=== PATIENT | male | born 1955 | race Caucasian/White ===

== ENCOUNTER 2022-03-02 14:35 | Emergency (ER) | payer MEDICARE, SELFPAY ==
[2022-03-02 14:50] VITALS: RESP 22; O2SAT 99; BMI 22.9
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
[2022-03-02] MEDS: tetanus-diphtheria tox (adult) 0.5 mL SDV IM (14:58)
[2022-03-02 15:06] VITALS: BP 134/61; PULSE 88; RESP 22; TEMP 36.6; O2SAT 96
--- NOTE | 2022-03-09 12:05 | PC.NURSE ---
Pt arrives via POV to have haylee removed from top of head. 13 haylee removed at this time. Pt handled well. Wound is healed. Pt stable and ambulatory from ED.
== END 2022-03-02 15:00 | disposition home or self-care (01) ==
PROVIDERS: Emergency Provider Emergency Medicine
DX: S01.01XA Laceration without foreign body of scalp, initial encounter (principal); V91.8 Other injury due to other accident to watercraft; Y93.16 Activity, rowing, canoeing, kayaking, rafting and tubing; Z23 Encounter for immunization
CPT/HCPCS: 12004; 90471; 90714; 99282

== ENCOUNTER 2022-06-19 05:00 | Emergency (ER) | payer MEDICARE, SELFPAY ==
[2022-06-19 05:13] VITALS: BP 179/84; PULSE 52; RESP 20; TEMP 36.7; O2SAT 100; BMI 24.3
--- NOTE | 2022-06-19 05:14 | ED_ITS ---
Documented by User: George Olsen MD 06/19/22 06:27 HPI - Chest Pain General: Chief Complaint: Chest Pain Stated Complaint: CP, Abd pain, back pain Time Seen by Provider: 06/19/22 05:13 History of Present Illness: Mr. Kendall is a 66-year-old gentleman without significant past medical history presents to the emergency department due to epigastric and chest pain. He reports being in his baseline health the past few days and overnight ate some food around midnight which went fine. He had some high at about 1 AM and shortly thereafter developed severe epigastric pain with radiation through to the back. Additionally he has some shortness of breath and radiation of the chest. Intensity symptoms is moderate to severe. Denies other typical cardiac features. No history of frequent similar episodes in the past. He tried home treatment without significant relief. No other specific changes in health, exacerbating, or alleviating factors identified. Onset (ago): hour(s) Timing of current episode: constant Prior episodes: No Onset: during rest Pain location: substernal and epigastric Pain radiation: back Quality: tightness, aching and sharp Relieving factors: nothing Exacerbating factors: nothing Associated symptoms: Reports no associated symptoms Review of Systems General: Reports: 10 or more systems reviewed and unremarkable except in HPI and below PFSH ED PFSH: Medical History (Updated 06/19/22 @ 08:09 by Rigoberto Pack MD) No significant past medical history Surgical History (Updated 06/19/22 @ 05:29 by George Olsen MD) No significant past surgical history Physical Exam Const: COMMON NORMALS: alert GENERAL APPEARANCE: cooperative and well developed HENMT: COMMON NORMALS: normocephalic and atraumatic HEAD & SCALP: normo cephalic and atraumatic Eye: COMMON NORMALS: conjunctivae normal CONJUNCTIVA: Yes conjunctivae normal SCLERA: sclerae normal Neck/C-Spine: COMMON NORMALS: supple GENERAL: Yes trachea midline Resp: COMMON NORMALS: normal respiratory effort EFFORT & INSPECTION: Yes able to speak in complete sentences Cardio: COMMON NORMALS: regular rate and regular rhythm RATE: regular rate RHYTHM: regular rhythm GI: COMMON NORMALS: Soft to palpation PALPATION: Yes Soft to palpation and No Tenderness to palpation present (GI) Extremity: GENERAL: Yes normal exam except as noted and No edema Neuro: COMMON NORMALS: moves all extremities SENSORIUM/ORIENTATION: Yes alert and No Orientation impaired Psych: COMMON NORMALS: mental status grossly normal and Normal thought process present THOUGHT PROCESS: Normal thought process present Course Vital Signs: Vital signs: Vital Signs Temperature 98.1 F 06/19/22 05:13 Pulse Rate 44 L 06/19/22 07:42 Respiratory Rate 20 H 06/19/22 05:35 Blood Pressure 184/78 06/19/22 07:42 Pulse Oximetry 100 06/19/22 07:42 Oxygen Delivery Me thod 06/19/22 07:42 MDM - Chest Pain Medical Decision Making 66-year-old gentleman presenting with epigastric/chest pain that radiates through the back associated with shortness of breath. Patient is nontoxic in appearance though does appear somewhat uncomfortable. Pain is not reproducible with palpation on exam. Handed off to morning ED physician Dr. Pack pending completion of ED evaluation and disposition. Medical Records I reviewed the patient's medical records. Lab Data I reviewed the patient's lab results. : 06/19/22 05:14 06/19/22 05:14 Radiology Impressions Chest X-Ray 06/19/22 05:24 IMPRESSION: 1. Emphysematous change and interstitial prominence. 2. Enlargement and tortuosity of the thoracic aorta. Chest/Abdomen/Pelvis CTA 06/19/22 08:17 IMPRESSION: Moderate tortuosity and ectasia of the thoracic aorta without aneurysm or dissection. Relatively normal abdominal aorta. Fusiform aneurysmal dilatation of the iliac arteries as above. Mild dilatation of the external and internal iliac arteries. No acute vascular abnormality identified. Chronic cholecystitis. No acute abdominal or pelvic abnormality. Severe degenerative disc disease in the thoracic and lumbar spine with no acute spine abnormality. Laboratory Results WBC 13.1 10^3/uL (4.0-10.0) H 06/19/22 05:14 RBC 4.81 10^6/uL (4.1-5.3) 06/19/22 05:14 Hgb 15.7 g/dL (11.7-16.6) 06/19/22 05:14 Hct 46.0 % (42.0-52.0) 06/19/22 05:14 MCV 95.6 fl (80-94) H 06/19/22 05:14 MCH 32.6 pg (28.0-34.0) 06/19/22 05:14 MCHC 34.1 g/dL (30.0-36.0) 06/19/22 05:14 RDW 11.9 % (12.1-15.1) L 06/19/22 05:14 Plt Count 363 10^3/cmm (130-400) 06/19/22 05:14 MPV 9.0 fL (7.4-10.4) 06/19/22 05:14 Neut % (Auto) 71.4 % 06/19/22 05:14 Lymph % (Auto) 18.9 % 06/19/22 05:14 Kimball % (Auto) 7.2 % 06/19/22 05:14 Eos % (Auto) 1.6 % 06/19/22 05:14 Baso % (Auto) 0.4 % 06/19/22 05:14 Neut # (Auto) 9.33 10^3/uL (1.8-7.7) H 06/19/22 05:14 Lymph # (Auto) 2.5 10^3/uL (0.8-4.8) 06/19/22 05:14 Kimball # (Auto) 0.9 10^3/uL (0.2-0.9) 06/19/22 05:14 Eos # (Auto) 0.2 10^3/uL (0.0-0.8) 06/19/22 05:14 Baso # (Auto) 0.1 10^3/uL (0.0-0.1) 06/19/22 05:14 Nucleated RBC % (auto) 0 % 06/19/22 05:14 Nucleated RBCs # 0.0 /100WBC 06/19/22 05:14 Sodium 139 mmol/L (136-145) 06/19/22 05:14 Potassium 3.8 mmol/L (3.5-5.1) 06/19/22 05:14 Chloride 100 mmol/L (98-107) 06/19/22 05:14 Carbon Dioxide 23 mmol/L (22-29) 06/19/22 05:14 Anion Gap 19.8 (5-19) H 06/19/22 05:14 BUN 17 mg/dL (8-23) 06/19/22 05:14 Creatinine 0.9 mg/dL (0.7-1.2) 06/19/22 05:14 GFR Calculation 83.9 mL/min (90-130) L 06/19/22 05:14 Glucose 106 mg/dL (65-115) 06/19/22 05:14 Calculated Osmolality 290 mOsm/kg (285-295) 06/19/22 05:14 Calcium 10.3 mg/dL (8.5-10.5) 06/19/22 05:14 Total Bilirubin 1.0 mg/dL (0.15-1.2) 06/19/22 05:14 AST 17 U/L (0-40) 06/19/22 05:14 ALT 13 U/L (0-41) 06/19/22 05:14 Alkaline Phosphatase 78 U/L (40-130) 06/19/22 05:14 Troponin T Baseline 6 ng/L (0-15) 06/19/22 05:14 Troponin T 120 Minute 8.21 ng/L (0-15) 06/19/22 07:33 Delta Troponin T 2.21 ABS# (0-10) 06/19/22 07:33 NT-Pro-B Natriuret Pep 355 pg/mL (0-125) H 06/19/22 05:14 Total Protein 7.7 g/dL (6.6-8.7) 06/19/22 05:14 Albumin 4.4 g/dL (3.5-5.2) 06/19/22 05:14 Globulin 3.3 g/dL (1.3-4.6) 06/19/22 05:14 Lipase 29 U/L (13-60) 06/19/22 05:14 Discharge Plan Discharge Patient Disposition: Home Clinical Impression: Chest pain Qualifiers: Chest pain type: unspecified Qualified Code(s): R07.9 - Chest pain, unspecified Condition: Stable Prescriptions: New Protonix 40 mg tablet,delayed release (DR/EC) 40 mg PO DAILY Qty: 60 0RF No Action Vitamin B-2 50 mg Tablet 50 mg PO DAILY Centrum Silver Men 300-600-300 mcg Tablet 1 tab PO DAILY Fiber Gummies 2 gram Tablet,Chewable 2 g PO DAILY Discharge Orders: Discharge ED (Routine); Ordered 06/19/22 Ordered By: Rigoberto Pack Discharge Diet: Advance as tolerated Discharge Activity: Resume usual activity Patient Instructions: Chest Pain (ED) Coding Level of Care Code ED Care Team Coordinator Scheduler for Marcusg Fwd Exam Comprehensive Documented by User: Rigoberto Pack MD 06/19/22 10:13 HPI - Chest Pain General: Chief Complaint: Chest Pain Stated Complaint: CP, Abd pain, back pain Time Seen by Provider: 06/19/22 05:13 PFS ED PFSH: Medical History (Updated 06/19/22 @ 08:09 by Rigoberto Pack MD) No significant past medical history Surgical History (Updated 06/19/22 @ 05:29 by George Olsen MD) No significant past surgical history Course Vital Signs: Vital signs: Vital Signs Temperature 98.1 F 06/19/22 05:13 Pulse Rate 44 L 06/19/22 07:42 Respiratory Rate 20 H 06/19/22 05:35 Blood Pressure 184/78 06/19/22 07:42 Pulse Oximetry 100 06/19/22 07:42 Oxygen Delivery Me thod 06/19/22 07:42 MDM - Chest Pain Medical Decision Making 66-year-old gentleman presenting with epigastric/chest pain that radiates through the back associated with shortness of breath. Patient is nontoxic in appearance though does appear somewhat uncomfortable. Pain is not reproducible with palpation on exam. Handed off to morning ED physician Dr. Pack pending completion of ED evaluation and disposition. Patient's troponin and CT scan here are negative pain appears to be likely gastric in origin possible gastritis we will start him on Protonix he is to follow-up PCP and return if worsening he understands agrees to plan. Lab Data : 06/19/22 05:14 06/19/22 05:14 Radiology Impressions Chest X-Ray 06/19/22 05:24 IMPRESSION: 1. Emphysematous change and interstitial prominence. 2. Enlargement and tortuosity of the thoracic aorta. Chest/Abdomen/Pelvis CTA 06/19/22 08:17 IMPRESSION: Moderate tortuosity and ectasia of the thoracic aorta without aneurysm or dissection. Relatively normal abdominal aorta. Fusiform aneurysmal dilatation of the iliac arteries as above. Mild dilatation of the external and internal iliac arteries. No acute vascular abnormality identified. Chronic cholecystitis. No acute abdominal or pelvic abnormality. Severe degenerative disc disease in the thoracic and lumbar spine with no acute spine abnormality. Laboratory Results WBC 13.1 10^3/uL (4.0-10.0) H 06/19/22 05:14 RBC 4.81 10^6/uL (4.1-5.3) 06/19/22 05:14 Hgb 15.7 g/dL (11.7-16.6) 06/19/22 05:14 Hct 46.0 % (42.0-52.0) 06/19/22 05:14 MCV 95.6 fl (80-94) H 06/19/22 05:14 MCH 32.6 pg (28.0-34.0) 06/19/22 05:14 MCHC 34.1 g/dL (30.0-36.0) 06/19/22 05:14 RDW 11.9 % (12.1-15.1) L 06/19/22 05:14 Plt Count 363 10^3/cmm (130-400) 06/19/22 05:14 MPV 9.0 fL (7.4-10.4) 06/19/22 05:14 Neut % (Auto) 71.4 % 06/19/22 05:14 Lymph % (Auto) 18.9 % 06/19/22 05:14 Kimball % (Auto) 7.2 % 06/19/22 05:14 Eos % (Auto) 1.6 % 06/19/22 05:14 Baso % (Auto) 0.4 % 06/19/22 05:14 Neut # (Auto) 9.33 10^3/uL (1.8-7.7) H 06/19/22 05:14 Lymph # (Auto) 2.5 10^3/uL (0.8-4.8) 06/19/22 05:14 Kimball # (Auto) 0.9 10^3/uL (0.2-0.9) 06/19/22 05:14 Eos # (Auto) 0.2 10^3/uL (0.0-0.8) 06/19/22 05:14 Baso # (Auto) 0.1 10^3/uL (0.0-0.1) 06/19/22 05:14 Nucleated RBC % (auto) 0 % 06/19/22 05:14 Nucleated RBCs # 0.0 /100WBC 06/19/22 05:14 Sodium 139 mmol/L (136-145) 06/19/22 05:14 Potassium 3.8 mmol/L (3.5-5.1) 06/19/22 05:14 Chloride 100 mmol/L (98-107) 06/19/22 05:14 Carbon Dioxide 23 mmol/L (22-29) 06/19/22 05:14 Anion Gap 19.8 (5-19) H 06/19/22 05:14 BUN 17 mg/dL (8-23) 06/19/22 05:14 Creatinine 0.9 mg/dL (0.7-1.2) 06/19/22 05:14 GFR Calculation 83.9 mL/min (90-130) L 06/19/22 05:14 Glucose 106 mg/dL (65-115) 06/19/22 05:14 Calculated Osmolality 290 mOsm/kg (285-295) 06/19/22 05:14 Calcium 10.3 mg/dL (8.5-10.5) 06/19/22 05:14 Total Bilirubin 1.0 mg/dL (0.15-1.2) 06/19/22 05:14 AST 17 U/L (0-40) 06/19/22 05:14 ALT 13 U/L (0-41) 06/19/22 05:14 Alkaline Phosphatase 78 U/L (40-130) 06/19/22 05:14 Troponin T Baseline 6 ng/L (0-15) 06/19/22 05:14 Troponin T 120 Minute 8.21 ng/L (0-15) 06/19/22 07:33 Delta Troponin T 2.21 ABS# (0-10) 06/19/22 07:33 NT-Pro-B Natriuret Pep 355 pg/mL (0-125) H 06/19/22 05:14 Total Protein 7.7 g/dL (6.6-8.7) 06/19/22 05:14 Albumin 4.4 g/dL (3.5-5.2) 06/19/22 05:14 Globulin 3.3 g/dL (1.3-4.6) 06/19/22 05:14 Lipase 29 U/L (13-60) 06/19/22 05:14 EKG Data EKG 1: I personally reviewed and interpreted this EKG as follows: EKG interpretation date: 06/19/22 EKG interpretation time: 07:32 Interpretation: sinus jenn hr [address] or t wave abnormalities qrs 89 qtc 445 Discharge Plan Discharge Patient Disposition: Home Clinical Impression: Chest pain Qualifiers: Chest pain type: unspecified Qualified Code(s): R07.9 - Chest pain, unspecified Condition: Stable Prescriptions: New Protonix 40 mg tablet,delayed release (DR/EC) 40 mg PO DAILY Qty: 60 0RF No Action Vitamin B-2 50 mg Tablet 50 mg PO DAILY Centrum Silver Men 300-600-300 mcg Tablet 1 tab PO DAILY Fiber Gummies 2 gram Tablet,Chewable 2 g PO DAILY Discharge Orders: Discharge ED (Routine); Ordered 06/19/22 Ordered By: Rigoberto Pack Discharge Diet: Advance as tolerated Discharge Activity: Resume usual activity Patient Instructions: Chest Pain (ED) Coding Level of Care Code ED Care Team Coordinator Scheduler for Chg Fwd Exam Comprehensive
[2022-06-19 05:21] VITALS: BP 179/84; PULSE 55; RESP 16; O2SAT 100
--- NOTE | 2022-06-19 05:24 | ECG_ITS ---
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 Measurements Intervals [place] Rate: 49 P: 61 [place]: 168 QRS: 26 QRSD: 85 T: 55 QT: 463 QTc: 419 Interpretive Statements SINUS BRADYCARDIA SEPTAL MYOCARDIAL INFARCTION , OF INDETERMINATE AGE [40+ ms Q WAVE IN V1/V2] No previous ECG available for comparison Electronically Signed On 06-19-2022 10:32:07 CDT by John Rose M.D. [id number]
--- NOTE | 2022-06-19 05:24 | XRR_ITS ---
PROCEDURE INFORMATION: Exam: XR Chest Exam date and time: 06/19/2022 5:45 AM Age: 66 years old Clinical indication: Chest pressure; Patient HX: C/O chest pain; Additional info: SOB TECHNIQUE: Imaging protocol: Radiologic exam of the chest. Views: 1 view. COMPARISON: No relevant prior studies available. FINDINGS: Lungs: Emphysematous change and interstitial prominence. Pleural spaces: No pleural effusion. Heart/Mediastinum: No cardiomegaly. Vasculature: Enlargement and tortuosity of the thoracic aorta. Bones/joints: Degenerative change. XR/XR chest 1V portable [id number] IMPRESSION: 1. Emphysematous change and interstitial prominence. 2. Enlargement and tortuosity of the thoracic aorta.
[2022-06-19] MEDS: morphine 4 mg/mL SDV 1 mL IVP (05:33)
[2022-06-19] MEDS: aspirin 81 mg Chew Tablet 324 MG PO (05:33)
[2022-06-19] MEDS: ondansetron 2 mg/ML SDV 2 mL 4 MG IVP (05:33)
[2022-06-19 05:35] VITALS: BP 179/84; PULSE 50; RESP 20; O2SAT 100
[2022-06-19 05:54] LABS: Basophils # 0.1 10^3/uL (0.0-0.1); Basophils % 0.4 %; Eosinophils # 0.2 10^3/uL (0.0-0.8); Eosinophils % 1.6 %; Hemoglobin 15.7 g/dL (11.7-16.6); Lymphocytes # 2.5 10^3/uL (0.8-4.8); Lymphocytes % 18.9 %; Mean Corpuscular HGB Conc 34.1 g/dL (30.0-36.0); Mean Corpuscular Hemoglobin 32.6 pg (28.0-34.0); Mean Corpuscular Volume 95.6 fl (80-94); Monocytes # 0.9 10^3/uL (0.2-0.9); Monocytes % 7.2 %; Neutrophils # 9.33 10^3/uL (1.8-7.7); Neutrophils % 71.4 %; Nucleated Red Blood Cells % 0 %; Platelet Count 363 10^3/cmm (130-400); Red Blood Count 4.81 10^6/uL (4.1-5.3); Red Cell Distribution Width 11.9 % (12.1-15.1); White Blood Count 13.1 10^3/uL (4.0-10.0)
[2022-06-19 06:15] LABS: Troponin(5th) Baseline 6 ng/L (0-15)
[2022-06-19 06:22] LABS: Alanine Aminotransferase 13 U/L (0-41); Albumin Level 4.4 g/dL (3.5-5.2); Alkaline Phosphatase 78 U/L (40-130); Anion Gap 19.8 (5-19); Aspartate Amino Transferase 17 U/L (0-40); Blood Urea Nitrogen 17 mg/dL (8-23); Calcium 10.3 mg/dL (8.5-10.5); Carbon Dioxide 23 mmol/L (22-29); Chloride 100 mmol/L (98-107); Globulin 3.3 g/dL (1.3-4.6); Glomerular Filtration Rate 83.9 mL/min (90-130); Glucose 106 mg/dL (65-115); Lipase 29 U/L (13-60); NT Pro B Type Natriuretic Pept 355 pg/mL (0-125); Osmolality Calculated 290 mOsm/kg (285-295); Potassium 3.8 mmol/L (3.5-5.1); Sodium 139 mmol/L (136-145); Total Protein 7.7 g/dL (6.6-8.7)
[2022-06-19 07:42] VITALS: BP 184/78; PULSE 44; O2SAT 100
[2022-06-19 08:04] LABS: Troponin 5 2HR 8.21 ng/L (0-15)
--- NOTE | 2022-06-19 08:17 | CT_ITS ---
WS: [id number] CT angio chest abdomen pelvis REASON FOR EXAM: chest/abd pain TECHNIQUE: Coronal and sagittal 2-D and MIP reformations. IV CONTRAST ADMINISTERED: 95 mL of Omnipaque 350 TOTAL EXAM DLP: 1488.[address] scans at [facility] use at least one of these dose optimization techniques: automat ed exposure control; mA and/or kV adjustment per patient size (includes targeted exams where dose is matched to clinical indication); or iterative reconstruction. FINDINGS: CHEST: Mild to moderate tortuosity and ectasia of the thoracic aorta without calcification or focal aneurysm or dissection. Maximum diameter of the ascending aorta is 3.5 cm. Maximum diameter of the descending thoracic aorta 3 cm. Proximal coronary arteries are normal. Small hilar hernia. Normal pulmonary arteries. No mediastinal or hilar adenopathy. 7 mm nodule in the posterior/medial right lower lobe. No significant pleural abnormality. Moderate degenerative spondylosis in the mid and lower thoracic spine without significant thoracic ve rtebral body abnormality. ABDOMEN: Moderate tortuosity and ectasia of the abdominal aorta without focal aneurysmal dilatation. Mild calc ified atherosclerotic plaquing. Normal major sidebranches of the abdominal aorta. Liver and pancreas are normal. Calcified granulomatous disease in the spleen. Gallbladder moderately distended with areas of mural thickening. No calculi. Common bile duct measure s 6 mm. No calculi. No focal abnormality of the pancreas. Adrenals and kidneys are within normal limits. No free fluid or focal fluid collection. Extensive diverticular disease in the sigmoid and descending colon without evidence of diverticulitis . No other significant bowel abnormality. No abdominal wall hernia. PELVIS: Fusiform aneurysmal dilatation of the common iliac arteries 15 mm in diameter on the right and 20 mm on the left. No significant calcified plaque. External and internal iliac arteries are prominent barbie uring 8 to 10 mm. No focal dilatation or significant calcified plaque. No mass, adenopathy, free fluid, or focal fluid collection in the pelvis. No inguinal hernia. Severe degenerative spondylosis in the lumbar spine no significant focal vertebral body abnormality. 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 CT/CT angio chest abdomen pelvis IMPRESSION: Moderate tortuosity and ectasia of the thoracic aorta without aneurysm or disse ction. Relatively normal abdominal aorta. Fusiform aneurysmal dilatation of the iliac arteries as above. Mild dilatation of the external and internal iliac ar teries. No acute vascular abnormality identified. Chronic cholecystitis. No acute abdominal or pelvic abnormality. Severe degenerative disc disease in the thoracic and lumbar spine with no acute spine abnormality.
[2022-06-19 08:29] LABS: Troponin 5 2HR Delta 2.21 ABS# (0-10)
[2022-06-19] MEDS: iohexol 350 mg/mL 100 mL Btl IV (09:24)
--- NOTE | 2022-06-19 11:24 | ECG_ITS ---
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 Measurements Intervals [place] Rate: 43 P: 52 SD: 182 QRS: 3 QRSD: 89 T: 27 QT: 499 QTc: 424 Interpretive Statements SINUS BRADYCARDIA SEPTAL MYOCARDIAL INFARCTION , PROBABLY OLD [40+ ms Q WAVE IN V1/V2] Compared to ECG 06/19/2022 05:06:07 No significant changes Electronically Signed On 06-19-2022 10:41:18 CDT by John Rose M.D. [id number]
== END 2022-06-19 10:28 | disposition home or self-care (01) ==
PROVIDERS: Emergency Medicine; Emergency Provider Emergency Medicine
DX: R07.9 Chest pain, unspecified (principal)
CPT/HCPCS: 71045; 71275; 74174; 80053; 83690; 83880; 84484; 85025; 93005; 96374; 96375; 99285; J2270; J2405; Q9967

== ENCOUNTER → 2023-06-02 13:02 | Outpatient (BNVA) | payer MEDICARE, SELFPAY | PROVIDERS: PCP Family Medicine; Referring Provider Family Medicine; Visit Provider Dermatology | DX: D48.5 Neoplasm of uncertain behavior of skin (principal); L57.0 Actinic keratosis; L81.4 Other melanin hyperpigmentation; L57.8 Other skin changes due to chronic exposure to nonionizing radiation; Z85.828 Personal history of other malignant neoplasm of skin | CPT/HCPCS: 11102; 17000; 17003; 99203 ==

== ENCOUNTER → 2023-07-28 08:42 | Outpatient (BNVA) | payer MEDICARE, SELFPAY | PROVIDERS: PCP Family Medicine; Visit Provider Dermatology | DX: C44.319 Basal cell carcinoma of skin of other parts of face (principal) | CPT/HCPCS: 12053; 17311 ==

== ENCOUNTER → 2023-08-06 11:14 | Outpatient (BNVA) | payer MEDICARE, SELFPAY | PROVIDERS: PCP Family Medicine; Visit Provider Nurse Practitioner Family | DX: Z48.02 Encounter for removal of sutures (principal) | CPT/HCPCS: 99212 ==

== ENCOUNTER → 2024-07-14 13:33 | Outpatient (BNVA) | payer MEDICARE, SELFPAY | PROVIDERS: PCP Family Medicine; Visit Provider Dermatology | DX: D48.5 Neoplasm of uncertain behavior of skin (principal); L57.0 Actinic keratosis; L82.1 Other seborrheic keratosis; L57.8 Other skin changes due to chronic exposure to nonionizing radiation; Z85.858 Personal history of malignant neoplasm of other endocrine glands | CPT/HCPCS: 11102; 17000; 99214 ==

== ENCOUNTER → 2024-08-03 13:05 | Outpatient (BNVA) | payer MEDICARE, SELFPAY | PROVIDERS: PCP Family Medicine; Visit Provider Dermatology | DX: D03.62 Melanoma in situ of left upper limb, including shoulder (principal); C44.311 Basal cell carcinoma of skin of nose | CPT/HCPCS: 11604; 12034; 99213 ==

== ENCOUNTER → 2024-08-17 08:50 | Outpatient (BNVA) | payer MEDICARE, SELFPAY | PROVIDERS: PCP Family Medicine; Visit Provider Dermatology | DX: C44.311 Basal cell carcinoma of skin of nose (principal); Z48.02 Encounter for removal of sutures | CPT/HCPCS: 13151; 17311 ==